=== PATIENT | female | born 1985 | race Hispanic/Latino ===

== ENCOUNTER 2020-01-12 13:08 | Emergency (ER) | payer OTHER ==
[2020-01-12] MEDS ORDERED: HYDROCO/APAP1 TA9 PO (13:46)
[2020-01-12 14:22] VITALS: BP 132/77
== END 2020-01-12 14:22 | disposition home or self-care (01) | DRG 563 ==
LOC: ED 13:08
PROC: 2W3DX1Z Immobilization of Left Lower Arm using Splint (ICD-10-PCS; principal; 2020-01-12)
DX: S52.502A Unspecified fracture of the lower end of left radius, initial encounter for closed fracture (principal); W17.89XA Other fall from one level to another, initial encounter; Y93.11 Activity, swimming; Y92.833 Campsite as the place of occurrence of the external cause